=== PATIENT | female | born 1980 | race Caucasian/White ===

== ENCOUNTER 2018-03-26 11:08 | Outpatient (CLI) | payer OTHER ==
[2018-03-26 12:40] LABS: Hemoglobin 14.6 g/dL (12.0-16.0); Mean Corpuscular HGB CONC 32.8 g/dL (32.0-36.0); Mean Corpuscular Hemoglobin 30.3 pg (27.0-31.0); Mean Corpuscular Volume 92.2 fL (78.0-98.0); Platelet Count 265 thou/uL (130-400); RBC Distribution Width 11.2 % (11.5-14.5); Red Blood Cell (RBC) Count 4.84 mill/uL (4.20-5.40); White Blood Cell (WBC) Count 8.9 thou/uL (4.8-10.8)
== END 2018-03-26 11:09 | disposition home or self-care (01) ==
LOC: LABBT 11:08
PROVIDERS: ATTEND Obstetrics & Gynecology
DX: Z01.812 Encounter for preprocedural laboratory examination (principal); R10.2 Pelvic and perineal pain; G89.29 Other chronic pain
CPT/HCPCS: 85027; 86850; 86900; 86901

== ENCOUNTER 2018-03-29 08:32 | Day surgery (SDC) | payer OTHER ==
[2018-03-26 11:34] VITALS: BMI 25.0
[2018-03-29] MEDS ORDERED: Clindamycin/D5W 600 mg/50 ml Premix Bag ONE (09:11)
[2018-03-29] MEDS ORDERED: Famotidine/PF 20 mg/2ml Vial ONE (09:11)
[2018-03-29] MEDS ORDERED: Gentamicin 80 MG/2 ML VIAL ONE (09:13)
[2018-03-29] MEDS ORDERED: CeleCOXIB 100 MG CAP ONE ×2 (09:14→09:15)
[2018-03-29] MEDS ORDERED: Gabapentin 300 MG CAP ONE ×2 (09:16→09:29)
[2018-03-29] MEDS ORDERED: Bupivacaine HCl 0.5%/Epinephrine 1:200,000/PF 30 ml Vial ONE (09:43)
[2018-03-29] MEDS ORDERED: Ropivacaine HCl/PF 750 ML in Premix Bag 1 BAG NERVE BLCK SCH (10:00)
[2018-03-29] MEDS ORDERED: Fentanyl 100 MCG/2 ML VIAL ONE ×2 (10:41→13:27)
[2018-03-29] MEDS ORDERED: Ondansetron HCl/PF 4 MG/2 ML Vial IVP PRN ×2 (13:26→13:29)
[2018-03-29] MEDS ORDERED: diphenhydrAMINE 25 MG CAP PO PRN (13:26)
[2018-03-29] MEDS ORDERED: Bisacodyl 10 MG SUPP PR PRN (13:26)
[2018-03-29] MEDS ORDERED: Simethicone Chewable 80 MG TAB PO PRN (13:26)
[2018-03-29] MEDS ORDERED: Promethazine HCl 25 MG/ML VIAL IM PRN ×2 (13:26→13:29)
[2018-03-29] MEDS ORDERED: HYDROcodone/Acetaminophen 5/325 mg Tablet PO PRN ×2 (13:26)
[2018-03-29] MEDS ORDERED: Zolpidem Tartrate 5 MG TAB PO PRN (13:26)
[2018-03-29] MEDS ORDERED: HYDROmorphone 2 MG/ML VIAL SLOW IVP PRN (13:29)
[2018-03-29] MEDS ORDERED: Promethazine HCl 25 MG/ML VIAL SLOW IVP PRN (13:29)
[2018-03-29] MEDS ORDERED: Meperidine HCl/PF 25 MG/ML VIAL SLOW IVP PRN (13:29)
[2018-03-29] MEDS ORDERED: Ondansetron HCl/PF 4 MG/2 ML Vial ONE (15:10)
[2018-03-29] MEDS ORDERED: Dexamethasone 20 MG/5 ML VIAL ONE (15:10)
[2018-03-29] MEDS ORDERED: PHENYLEPHRINE-NS 100 MCG/ML 10 ML SYRINGE ONE (15:10)
[2018-03-29] MEDS ORDERED: PROPOFOL 200 MG/20 ML VIAL ONE (15:10)
--- NOTE | 2018-03-29 18:56 | OP ---
PREOPERATIVE DIAGNOSES: 1. Chronic pelvic pain. 2. Post-ablation syndrome. POSTOPERATIVE DIAGNOSES: 1. Chronic pelvic pain. 2. Post-ablation syndrome. PROCEDURES: 1. Robotic-assisted total laparoscopic hysterectomy. 2. Bilateral salpingectomy. 3. Extensive lysis of adhesions. SURGEON: Elsa Chan D.O. RIGGER THIRD: Kera Garcia M.D. COMPLICATIONS: None. ESTIMATED BLOOD LOSS: 50 mL IV FLUIDS: 1000 mL URINE OUTPUT: 50 mL ANESTHESIA: General. FINDINGS: Normal external genitalia, normal vaginal and cervical epithelium. An 8 cm uterus. Thin omental adhesions to the anterior abdominal wall, dense adhesions in the pelvis from the pelvic side wall to the adnexa bilaterally and from the dome of the bladder to the lower uterine segment. Inflammation of the fallopian tubes and ovaries suggestive of a possible prior pelvic inflammatory disease. Transperitoneal identification of the ureters noting, peristalsis bilaterally. INDICATIONS FOR THE PROCEDURE: Ms. Steph Cazares is a 37-year-old female who presented with complaints of chronic pelvic pain. The patient had a history of a prior endometrial ablation with no menstrual outflow. Patient had a sonogram that showed a collection of fluid within the endometrial canal and her symptoms were suggestive of post-ablation syndrome. Endometrial biopsy was attempted in the clinic; however, unable to be performed due to cervical stenosis. Patient was counseled on her treatment options and desired to have definitive surgical treatment with a hysterectomy. PROCEDURE IN DETAIL: The patient was brought to the operating room. She was placed under general anesthesia. The patient was placed in dorsal lithotomy position using Chris stirrups and arms were tucked appropriately for robotic surgery. She received gentamicin and clindamycin for surgical prophylaxis. The patient was prepped and draped in a sterile fashion. An official timeout was performed. Single sided speculum was placed in the vagina. The anterior aspect of the cervix was grasped using a single tooth tenaculum. Cervix was sequentially dilated using Farshad dilators breaking through the cervical stenosis. The uterus was approximately 8 cm. A DOLORES manipulator was then inserted and appropriately secured to the ectocervix. The bladder was drained with a Teague catheter. Gloves were exchanged and attention was turned to the abdominal portion of the exam. An umbilical incision was made using the scalpel and the Veress needle was inserted into the peritoneal cavity, the peritoneal cavity was insufflated using carbon dioxide noting a normal pressure. A 12-mm trocar was placed at this point, the anatomy was evaluated, noting the findings above. The patient was placed in Trendelenburg position. Two residential real estate assistant robotic ports were placed, one in the right and one in the left lower quadrant of the abdomen and both were placed under direct visualization using 8 mm ports. An additional residential real estate assistant port was placed in the right aspect of the abdomen using an 11 mm port. All were placed under direct visualization using local anesthesia. The robot was then appropriately docked to the patient and the robotic instruments were inserted. The omental adhesions along the anterior abdominal wall and along the anterior aspect of the uterus were taken down using monopolar and bipolar cautery. Attention was then turned to the pelvis. There were severe adhesions as mentioned above. The course of bilateral ureters was identified transperitoneally. The peritoneum along the right ovary was elevated and transected allowing entrance into the peritoneum along the pelvic sidewall to allow for dissection of the scar tissue from the right adnexa to the pelvic sidewall. This was performed around the right ovary and also running parallel to the infundibulopelvic ligament on the right side. Once the ovary was more freed from the right side, then the fallopian tube was able to be from the right ovary. The fallopian tube was then elevated and removed in its entirety from the right side and removed through the residential real estate assistant port. The peritoneum on the anterior sidewall was then extended anteriorly towards the bladder. The right round ligament was then coagulated and transected and this dissection was continued again more anteriorly. The utero-ovarian ligament on the right side was then coagulated multiple times and transected and the posterior peritoneum on the right side was then undermined and transected down towards the level of the uterosacral ligament, beginning the skeletonization of the right uterine vessels. Attention was then turned over to the left side. The same was required to be performed on the left side as the left ovary was firmly adhered to the pelvic sidewall. Again, the peritoneum was elevated and transected allowing entrance into the peritoneum along the side of the abdomen and this was transected around the area of scar tissue to allow the ovary to be freed away from the pelvic sidewall. The left fallopian tube was then removed in its entirety using monopolar cautery. The left round ligament was then coagulated multiple times and then transected. This allowed entry into the broad ligament. The anterior leaf of the broad ligament was then undermined and a bladder flap was begun to be developed on the left aspect. The left uteroovarian ligament was coagulated and transected. The posterior aspect of the peritoneum was undermined and transected down to the level of the uterosacral ligament. The course of the ureters was noted bilaterally during this part of the dissection. The left uterine vessels were further skeletonized. Attention was turned back to the anterior aspect and bladder was backfilled to demarcate the dome of the bladder. The scar tissue was then transected from the lower uterine segment and allowing inferior reflection of the bladder. The dissection of the bladder took several minutes due to the dense scar tissue anteriorly. The left uterine vessels were then coagulated multiple times and then transected. Attention was turned over to the right side which the uterine vessels were also coagulated multiple times and then transected. The colpotomy was performed in a circumferential fashion, the cervical and vaginal tissue. The uterus and cervix were then delivered vaginally and the pelvis was irrigated and cleared of all clot and debris. The hysterotomy was closed using a one Stratafix suture. The pelvis was again irrigated and cleared of all clot and debris. The ON-Q pump catheter was then inserted and placed into the pelvis. The robotic instruments were removed from the abdomen. The robot was undocked from the patient. The abdomen was deflated and trocars were removed. The fascia of the umbilical port was closed using Vicryl and the skin incisions were closed using Monocryl and Dermabond. The vaginal was examined, noting no lacerations. The patient was placed back in supine position, was extubated without difficulty. All counts were correct x2. There were no complications. The patient was transferred to the PACU in hemodynamically stable condition. GRANT
[2018-03-29] MEDS: Ibuprofen 800 MG TAB PO SCH ×2 (19:26→21:59)
[2018-03-29] MEDS: Lactated Ringer's 1,000 ML IV SCH ×2 (19:27→22:50)
--- NOTE | 2018-03-29 22:14 | PRG ---
DATE OF SERVICE: 03/29/2018 HISTORY OF PRESENT ILLNESS: Postoperative day 0, status post robotic-assisted total laparoscopic hys terectomy with bilateral salpingectomy. SUBJECTIVE: The patient is having increased pain after surgery due to extensive lysis of adhesions a nd also noted to have slight oliguria. The patient has required IV pain medication. OBJECTIVE: VITAL SIGNS: Stable. PLAN: We will plan to keep the patient overnight for observation due to increased postoperative pain and slight oliguria noted postoperatively. We will check laboratory values in the morning and anusha nue p.r.n. IV and oral medications.
[2018-03-30] MEDS: Lactated Ringer's 1,000 ML IV SCH (05:20)
[2018-03-30 05:23] LABS: #Eosinphils 0.1 thou/uL (0.0-0.7); #Lymphocytes 1.3 thou/uL (1.20-3.40); #Monocytes 1.4 thou/uL (0.11-0.59); #Neutrophils 14.7 thou/uL (1.40-6.50); %Basophils 0.3 % (0.0-1.0); %Eosinophils 0.5 % (0.0-10.0); %Lymphocytes 7.3 % (21.0-51.0); %Monocytes 7.9 % (0.0-10.0); Mean Corpuscular HGB CONC 33.8 g/dL (32.0-36.0); Mean Corpuscular Volume 91.8 fL (78.0-98.0); Mean Platelet Volume 8.1 fL (7.4-10.4); Platelet Count 238 thou/uL (130-400); RBC Distribution Width 11.2 % (11.5-14.5); Red Blood Cell (RBC) Count 4.18 mill/uL (4.20-5.40); White Blood Cell (WBC) Count 17.6 thou/uL (4.8-10.8)
[2018-03-30 05:38] LABS: Anion Gap 8 mmol/L (10-20); BUN (Urea Nitrogen) 9 mg/dL (7.0-18.7); Calc. Creatinine Clearance 88 mL/min (70-130); Calcium 8.4 mg/dL (7.8-10.44); Carbon Dioxide 23 mmol/L (22-29); Chloride 109 mmol/L (98-107); Estimated GFR-MDRD 85; Glucose 131 mg/dL (70-105); Potassium 4.1 mmol/L (3.5-5.1); Sodium 136 mmol/L (136-145)
[2018-03-30] MEDS: Ibuprofen 800 MG TAB PO SCH (06:11)
[2018-03-30 07:44] VITALS: BP 107/63; TEMP 99.5
--- NOTE | 2018-03-30 10:24 | PRG ---
DATE OF SERVICE: 03/30/2018 HISTORY OF PRESENT ILLNESS: Postoperative day #1 status post a robotic assisted total laparoscopic hysterectomy with a bilateral salpingectomy and extensive lysis of adhesions. SUBJECTIVE: The patient reports feeling much better this morning and she was kept overnight due to i nadequate pain control. However, the patient said that she is having pain control with oral medicati ons. She is voiding without difficulty. The patient is passing flatus and has no vaginal bleeding. She is tolerating a general diet without nausea or vomiting. OBJECTIVE: VITAL SIGNS: Stable. The patient is afebrile. GENERAL: In no acute distress. CARDIOVASCULAR: Regular rate and rhythm. RESPIRATORY: Unlabored breathing. Clear to auscultation bilaterally. ABDOMEN: Soft, mild distention and mild tenderness to palpation, as expected postoperatively. The l aparoscopic incisions are clean, dry, and intact with Dermabond and ON-Q pump in place and appropriat jacinta secured. EXTREMITIES: Negative Homans'. No edema. LABORATORY DATA: Hemoglobin is 13, hematocrit is 38.4, platelet is 238. Creatinine is 0.76. ASSESSMENT: Postoperative day #1 status post robotic assisted total laparoscopic hysterectomy with a bilateral salpingectomy and extensive lysis of adhesions. PLAN: The patient is doing well postoperatively and has met all requirements for discharge. Plan to discharge this morning and have follow up in 2 weeks.
--- NOTE | 2018-03-30 14:14 | DIS ---
ADMISSION DIAGNOSES: 1. Status post robotic assisted total laparoscopic hysterectomy with a bilateral salpingectomy and e xtensive lysis of adhesions. 2. Postoperative pain control. DISCHARGE DIAGNOSES: 1. Status post robotic assisted total laparoscopic hysterectomy with a bilateral salpingectomy and e xtensive lysis of adhesions. 2. Postoperative pain control. ADMISSION AND DISCHARGE PHYSICIAN: Elsa Chan D.O. DATE OF ADMISSION: 03/29/2018 DATE OF DISCHARGE: 03/30/2018 BRIEF HOSPITAL COURSE: Ms. Steph Cazares is a 37-year-old female postoperative day #1, status pos t a robotic assisted total laparoscopic hysterectomy with bilateral salpingectomy, extensive lysis of adhesions. She was admitted under outpatient status for pain management after her surgery. The pat ient is stable for discharge and has met all requirements for discharge this morning. She is voiding , ambulating, passing flatus, tolerating an oral diet with no complications and her pain is managed w ith oral medications. Follow up in 2 weeks. ACTIVITY RESTRICTIONS: Pelvic rest, no heavy lifting, pushing or pulling for 6 weeks. CODE: FULL. DIET: Regular. MEDICATIONS: 1. [place] 5/325 one tablet p.o. q.6 hours p.r.n. pain, #30 refills. 2. Motrin 800 mg 1 tablet every 8 hours p.r.n. pain, #60 with 0 refills.
== END 2018-03-30 09:44 | disposition home or self-care (01) ==
LOC: SDC 08:32 → EDSTATUS 11:30 → 3SW 13:26 → SDC 03-30 09:44
PROVIDERS: ATTEND Obstetrics & Gynecology
PROC: 0UT74ZZ Resection of Bilateral Fallopian Tubes, Percutaneous Endoscopic Approach (ICD-10-PCS; principal; 2018-03-29)
PROC: 0UT94ZZ Resection of Uterus, Percutaneous Endoscopic Approach (ICD-10-PCS; principal; 2018-03-29)
DX: N80.0 Endometriosis of uterus (principal); N72 Inflammatory disease of cervix uteri; N70.01 Acute salpingitis; N70.11 Chronic salpingitis; N83.6 Hematosalpinx; G89.29 Other chronic pain; E03.9 Hypothyroidism, unspecified; F17.200 Nicotine dependence, unspecified, uncomplicated; Z88.0 Allergy status to penicillin; Z79.899 Other long term (current) drug therapy; Z98.890 Other specified postprocedural states
CPT/HCPCS: 36415; 80048; 85025; 88307; 96374; 96375; 96376; A4216; J0131; J0670; J1100; J1580; J2270; J2405; J2704; J2795; J3010; J3490; S0028

== ENCOUNTER 2018-04-19 12:11 | Outpatient (CLI) | payer OTHER | END 2018-04-19 12:12 | disposition home or self-care (01) | LOC: BICMAMMO 12:11 | PROVIDERS: ATTEND Obstetrics & Gynecology | DX: Z12.31 Encounter for screening mammogram for malignant neoplasm of breast (principal); N63.20 Unspecified lump in the left breast, unspecified quadrant | CPT/HCPCS: 77063; 77067 ==

== ENCOUNTER 2018-04-22 13:06 | Outpatient (CLI) | payer OTHER | END 2018-04-22 13:07 | disposition home or self-care (01) | LOC: BICMAMMO 13:06 | PROVIDERS: ATTEND Obstetrics & Gynecology | DX: N63.24 Unspecified lump in the left breast, lower inner quadrant (principal) | CPT/HCPCS: G0279 ==

== ENCOUNTER 2018-04-23 09:32 | Outpatient (CLI) | payer OTHER ==
--- NOTE | 2018-04-23 13:45 | ULT ---
SOSONOGRAM ABDOMEN COMPLETE: HISTORY: Upper abdomen pain. Abnormal liver function tests. FINDINGS: The gallbladder has a normal appearance without evidence of stones. The common duct is 0.4 cm. The liver is unremarkable without focal mass or intrahepatic biliary dilatation. No free fluid. The spl een, kidneys, and visualized portions of the abdominal aorta, IVC, and pancreas have a normal sonogra phic appearance. IMPRESSION: No significant abnormalities are demonstrated. POS: [facility]
== END 2018-04-23 09:33 | disposition home or self-care (01) ==
LOC: ULT 09:32
PROVIDERS: ATTEND Family Medicine
DX: L29.9 Pruritus, unspecified (principal)
CPT/HCPCS: 76700

== ENCOUNTER 2018-08-10 08:18 | Outpatient (CLI) | payer OTHER ==
--- NOTE | 2018-08-10 09:31 | CT ---
CT OF THE ABDOMEN WITHOUT AND WITH CONTRAST: History: Obstructive hyper bilirubinemia. Abdominal pain since December. Comparison: Abdominal ultrasound 04-23-18 Technique: Multiple contiguous axial images were obtained in a CT of the abdomen only without and wit h IV contrast. PO contrast was administered. Coronal reformats were performed. FINDINGS: There is a subcentimeter hypodensity in the liver on image 18 or 61 which is too small to definitely characterize and may represent a small cyst. No other liver abnormality is seen. The gallbladder, kid neys, adrenal glands, spleen and pancreas are unremarkable. No enlargement of the common bile duct or intrahepatic biliary tree is seen. The visualized large and small bowel are unremarkable. No abdominal adenopathy is seen. The osseous structures, visualized inferior thorax and abdominal wall soft tissues are unremarkable. IMPRESSION: Likely small hepatic cysts; otherwise, unremarkable exam. POS: [facility]
[2018-08-10] MEDS ORDERED: ISOVUE-370 76%-LOCM 1 ML ONE (11:42)
== END 2018-08-10 08:19 | disposition home or self-care (01) ==
LOC: BICCT 08:18
PROVIDERS: ATTEND Obstetrics & Gynecology
DX: K83.1 Obstruction of bile duct (principal)
CPT/HCPCS: 74170

== ENCOUNTER 2024-07-11 08:05 | Outpatient (CLI) | payer BC | END 2024-07-11 08:06 | disposition home or self-care (01) | LOC: BICMAMMO 08:05 | PROVIDERS: ATTEND Registered Nurse | DX: Z12.31 Encounter for screening mammogram for malignant neoplasm of breast (principal) | CPT/HCPCS: 77063; 77067 ==